=== PATIENT | male | born 1995 | race Caucasian/White ===

== ENCOUNTER 2018-07-13 18:55 | Emergency (ER) | payer MEDICAID, OTHER ==
[2018-07-13 19:22] VITALS: RESP 16
--- NOTE | 2018-07-13 20:47 | ED PDOC ---
Lower Extremity Pain/Injury Time Seen by Provider: 07/13/18 19:52 Chief Complaint (Nursing): Lower Extremity Problem/Injury Chief Complaint (Provider): Lower Extremity Problem/Injury History Per: Patient History/Exam Limitations: no limitations Onset/Duration Of Symptoms: Days (x1 year) Current Symptoms Are (Timing): Still Present Additional Complaint(s): 23 year old male presents to the ED for evaluation of an ingrown nail to the right big toe. Patient states he had it for a year and has cut it back multiple times. The last time he did this was 2 weeks ago. He reports worsening pain and swelling, but he took no medications for it prior to arrival. Today, he reports the toe started oozing blood and pus, prompting ED visit. Tetanus UTD. No other complaints. Denies fever, chills. PMD: [place] Past Medical History Reviewed: Historical Data, Nursing Documentation, Vital Signs Vital Signs: Last Vital Signs Temp 98.6 F 07/13/18 19:21 Pulse 70 07/13/18 19:21 Resp 16 07/13/18 19:21 BP 100/65 07/13/18 19:21 Pulse Ox 99 07/13/18 19:21 - Medical History PMH: No Chronic Diseases - Surgical History Surgical History: No Surg Hx - Family History Family History: States: Unknown Family Hx - Immunization History Hx Tetanus Toxoid Vaccination: Yes - Home Medications Home Medications: Ambulatory Orders Medication Instructions Recorded Bacitracin Ointment [Bacitracin] 1 applic TOP BID #1 tube 07/13/18 Cephalexin [Keflex] 500 mg PO TID #21 capsule 07/13/18 RX: Ibuprofen [Motrin Tab] 600 mg PO Q6 PRN #20 tab 07/13/18 - Allergies Allergies/Adverse Reactions: Allergies Allergy/AdvReac Type Severity Reaction Status Date / Time No Known Allergies Allergy Verified 07/13/18 19:19 Review of Systems ROS Statement: Except As Marked, All Systems Reviewed And Found Negative Musculoskeletal: Positive for: Other (ingrown toenail to the right big toe with swelling, pain and pus and blood drainage) Physical Exam - Reviewed Nursing Documentation Reviewed: Yes Vital Signs Reviewed: Yes - Physical Exam Comments: GENERAL APPEARANCE: Patient is awake, alert, oriented x 3, in no acute distress. Resting comfortably. SKIN: Warm, dry; (-) cyanosis. NECK: Supple, FROM CHEST AND RESPIRATORY: (-) rales, (-) rhonchi, (-) wheezes; breath sounds equal bilaterally. Respirations even and nonlabored. HEART AND CARDIOVASCULAR: (-) irregularity LOWER EXTREMITIES: To the lateral nail margin of the right big toe he has overgrowth of tissue overlying nail, (+) dried blood to nail margin (+) edema, (+) erythema, (+) warmth, (+) diffuse tenderness and edema of the big toe. FROM of foot and ankle; pulses and sensation intact, (-) calf tenderness. Cap refill <2 seconds. NEURO AND PSYCH: Mental status as above. Gait: steady. Speech: clear (-) facial asymmetry (-) aphasia. - ECG O2 Sat by Pulse Oximetry: 99 (RA) Pulse Ox Interpretation: Normal Medical Decision Making Medical Decision Making: Time: 2019 Clinical Impression: Ingrown toenail Initial Plan: --Toradol 30 mg IM --Consult to podiatry; spoke to podiatry resident Ellen Jackson, who is agreeable to evaluate patient in ER. 2114 Podiatry is at bedside. 2139 Toenail removed in it's entirety by podiatry. See consult note. Dressing and surgical shoe placed by podiatry. Wound care instructions provided by podiatry. Podiatry resident recommends XR evaluation and Keflex PO. Keflex PO ordered. 2229 XR: (-) fracture (-) evidence of osteomyelitis On re-evaluation, patient reports improvement of symptom. On exam, patient remains AAOx3, in no acute distress. Vitals stable. Lab/Diagnostic results d/w the patient in great detail. Diagnosis of ingrown toenail, acute toe pain d/w the patient. Based on history, exam and diagnostic results, plan will be for outpatient follow up with podiatry. Patient instructed to follow-up with pmd / referral provided / the clinic in 1- 2 days without fail. Advised to take medication as prescribed. Return to the emergency room at any time for any new or worsening symptoms. Patient states he fully agrees with and understands discharge instructions. States that he agrees with the plan and disposition. Verbalized and repeated discharge instructions and plan. I have given the patient opportunity to ask any additional questions. Scribe Attestation: Documented by Beatriz Edgar, acting as a scribe for Emily Rodriguez PA-C. Provider Scribe Attestation: All medical record entries made by the Scribe were at my direction and personally dictated by me. I have reviewed the chart and agree that the record accurately reflects my personal performance of the history, physical exam, m edical decision making, and the department course for this patient. I have also personally directed, reviewed, and agree with the discharge instructions and disposition. Disposition - Clinical Impression Clinical Impression: Ingrown toenail, Toe infection - Patient ED Disposition Is Patient to be Admitted: No Counseled Patient/Family Regarding: Studies Performed, Diagnosis, Need For Followup, Rx Given - Disposition Referrals: Podiatry Clinic [Outside] Disposition: Routine/Home Disposition Time: 22:30 Condition: STABLE Additional Instructions: The emergency medical care your child received today was directed towards the acute presenting symptoms. If your child was prescribed any medication, please fill it and give as directed. It may take several days for your chasidy symptoms to resolve. Return to the Emergency Department at any time if symptoms worsen, do not improve, or if any other problems arise. Please contact your chasidy doctor in 2 days for re-evaluation and follow up / or call one of the physicians/clinics you have been referred to that are listed on the Patient Visit Information form that is included in your discharge packet. Bring any paperwork you were given at discharge with you along with any medications to your follow up visit. Our treatment cannot replace ongoing medical care by a primary care provider (PCP) outside of the emergency department. Prescriptions: Bacitracin Ointment [Bacitracin] 1 applic TOP BID #1 tube Cephalexin [Keflex] 500 mg PO TID #21 capsule RX: Ibuprofen [Motrin Tab] 600 mg PO Q6 PRN #20 tab PRN Reason: Pain, Moderate (4-7) Instructions: Ingrown Toenail, Ingrown Toenail Removal, Wound Care Forms: [facility] (Greenlandic) Print Language: AMHARIC - POA Present On Arrival: None
[2018-07-13] MEDS ORDERED: Lidocaine 1% Inj (20ml) IJ ONE (21:17)
--- NOTE | 2018-07-13 21:47 | CP.PCM.CON ---
History of Present Illness - History of Present Illness History of Present Illness: Podiatry Consult Note for Dr. Lozano 23M, with no PMHx, seen and examined at bedside for R painful ingrown nail. Patient states that he has had the ingrown nail for over a year and it has gotten worse over time. He admits to trying to pick out the nail himself and it caused more irritation. He states that sometimes his sock has drainage on it from the nail. Denies N/V/F/SOB/CP. PMHx: denies PSHx: denies ALL: denies SHx: denies tobacco use, denies elicit drug use Review of Systems - Review of Systems Review of Systems: As per HPI Past Patient History - Past Social History Smoking Status: Never Smoked - PSYCHIATRIC Hx Substance Use: No Meds Allergies/Adverse Reactions: Allergies Allergy/AdvReac Type Severity Reaction Status Date / Time No Known Allergies Allergy Verified 07/13/18 19:19 - Medications Medications: Current Medications Cephalexin Monohydrate (Keflex) 500 mg PO STAT STA; Protocol Stop: 07/13/18 21:39 Physical Exam - Constitutional Appears: Well, Non-toxic, No Acute Distress - Head Exam Head Exam: ATRAUMATIC, NORMOCEPHALIC - Eye Exam Eye Exam: Normal appearance - Extremities Exam Additional comments: RLE focused exam: Vascular: DP/PT pulses 2/4, CFT < 3 seconds, +2 edema noted to lateral aspect of R nail Ortho: Tenderness to palpation of lateral nail border, MMT 5/5, no gross deformities appreciated Neuro: Gross and protective sensation intact Derm: Paronychia appreciated to R lateral nail border with positive purulence and serous drainage, no probe to bone, no malodor, erythema noted circumfrentially to R hallux nail - Neurological Exam Neurological exam: Alert, Oriented x3 - Psychiatric Exam Psychiatric exam: Normal Affect, Normal Mood Results - Vital Signs Recent Vital Signs: Last Vital Signs Temp 98.6 F 07/13/18 19:21 Pulse 70 07/13/18 19:21 Resp 16 07/13/18 19:21 BP 100/65 07/13/18 19:21 Pulse Ox 99 07/13/18 21:42 Assessment & Plan - Assessment and Plan (Free Text) Assessment: 23M, with no PMHx, seen and examined at bedside for R paronychia Plan: Patient seen and evaluated with all questions and concerns addressed Discussed patient in detail with Dr. Lozano R foot x-rays ordered R hallux nail blocked in an local hallux block fashion with 1% lidocaine plain A total nail avulsion was performed to the R hallux nail Local wound care to R hallux; bacitracin, DSD, Kerlix Patient to leave dressing C/D/I for one day followed by local wound care Patient advised on how to perform local wound care to R hallux nail bed Patient expressed verbal understanding Surgical shoe dispensed to patient Patient given a prescription for a 10 day course of Keflex OTC pain medication as needed Patient to follow up with Dr. Lozano in office in 1 week - Date & Time Date: 07/13/18 Time: 21:45
[2018-07-13 23:08] VITALS: BP 115/71; PULSE 73; TEMP 98; O2SAT 98
--- NOTE | 2018-07-14 11:31 | RAD ---
Date of service: 07/13/2018 PROCEDURE: Right Foot Radiographs. HISTORY: r/o osteomyelitis COMPARISON: None. FINDINGS: BONES: Normal. No fracture. JOINTS: Normal. SOFT TISSUES: Normal. OTHER FINDINGS: None. IMPRESSION: Normal right foot radiographs.
== END 2018-07-13 23:09 | disposition home or self-care (01) ==
LOC: H.ER 18:55
DX: L60.0 Ingrowing nail (principal); L03.031 Cellulitis of right toe
CPT/HCPCS: 73630; 96372; 99283; J1885